=== PATIENT | female | born 1960 | race Caucasian/White ===

== ENCOUNTER 2017-01-11 10:46 | Emergency (ER) | payer SELFPAY, MEDICAID ==
[~2017-01-11 10:46] MED LIST: AMARYL4 M1 PO; LEVAQUIN500 M1 PO; METFORMIN HCL500 M2 PO
[2017-01-11] MEDS ORDERED: ZESTRIL20 M3 PO (10:59)
[2017-01-11] MEDS ORDERED: BACTRIM DS TAB1 EAC2 PO (11:00)
[2017-01-11] MEDS ORDERED: KEFLEX500 M4 PO (11:00)
== END 2017-01-11 11:55 ==
LOC: EDMED 10:46
DX: S01.80XA Unspecified open wound of other part of head, initial encounter (principal); E11.9 Type 2 diabetes mellitus without complications; I10 Essential (primary) hypertension; Z79.899 Other long term (current) drug therapy; X58.XXXA Exposure to other specified factors, initial encounter

== ENCOUNTER 2017-01-17 16:17 | Emergency (ER) | payer MEDICAID, SELFPAY ==
[~2017-01-17 16:17] MED LIST changes: +BACTRIM DS TAB1 EAC2 PO; +KEFLEX500 M4 PO; +ZESTRIL20 M3 PO
== END 2017-01-17 17:47 ==
LOC: EDMED 16:17
DX: H53.8 Other visual disturbances (principal); E11.9 Type 2 diabetes mellitus without complications; I10 Essential (primary) hypertension; Z90.49 Acquired absence of other specified parts of digestive tract; Z79.84 Long term (current) use of oral hypoglycemic drugs; Z79.899 Other long term (current) drug therapy